=== PATIENT | female | born 1970 | race Caucasian/White ===

== ENCOUNTER 2024-01-14 11:13 | Emergency (ER) | payer OTHER, SELFPAY ==
[2024-01-14 11:22] VITALS: BP 149/85
--- NOTE | 2024-01-14 12:16 | ED.GENMED ---
History of Present Illness
General
Chief Complaint: Breathing Problem
Source: patient
Time Seen by Provider: 01/14/24 12:06
History of Present Illness
History of Present Illness:
53yoF with a history of PCOS, menorrhagia on TXA, obesity, and anxiety presenting for evaluation of shortness of breath. Patient reports feeling short of breath over the past week primarily with walking/exertion. She started with left sided chest
discomfort this morning which she describes as sharp. Pain is intermittent and worse with exhalation. She denies any cough, nausea, vomiting, syncope, fevers, leg swelling, calf pain. No recent travel. She is currently on her menses and took TXA a
few days ago.
Phy Exam
General Physical Exam
General Presentation: well appearing and no apparent distress
General age: appears stated age
General Skin: warm and dry
General Habitus: normal
General Mental: alert
General Hydration: appears well hydrated
Cardiovascular Exam
Cardiovascular Exam: regular rate/rhythm, no edema and no murmur
Pulmonary Exam
Pulmonary Exam: lungs clear, no respiratory distress, chest non tender, no crackles and no wheezing
Musculoskeletal Exam
Musculoskeletal Exam: no edema
Skin Exam
Skin Exam: normal color and warm/dry
Psychiatric Exam
Psychiatric Exam: normal mood/affect
Scores
Heart Failure Risk
Heart Failure Risk Score: Not Applicable
Course
Orders/Labs/Results
Orders:
Orders
01/14/24 11:26
Electrocardiogram (*1) Urgent
Reason for Study: Shortness of Breath
EKG- Treatment ONCE
01/14/24 11:27
CXR2 [CR Chest - 2 Views ] Urgent
Comment:
Reason For Exam: sob
01/14/24 12:16
Cardiac Monitoring- Treatment ONCE
01/14/24 12:56
CMP [Comprehensive Metabolic Panel] Urgent
Complete Blood Count/With Diff Urgent
D-Dimer Urgent
Troponin I Urgent
01/14/24 14:04
CT Chest Pe Study Urgent
Comment:
Reason For Exam: SOB, elevated D-dimer
Abnormal Lab Results
01/14/24
12:56
Hgb 10.4 L g/dL
(12.0-16.0)
Hct 33.3 L %
(37.0-47.0)
MCV 71.5 L fL
(81.0-99.0)
MCH 22.3 L pg
(27.0-31.0)
MCHC 31.2 L g/dL
(33.0-37.0)
RDW 17.4 H %
(11.5-14.5)
D-Dimer 0.53 H ug/mlFEU
(0.00-0.50)
Glucose 109 H mg/dl
(70-99)
01/14/24 12:56
01/14/24 12:56
Vital Signs
Initial and Last Documented VS:
Initial Vital Signs
Temp Pulse Resp BP Pulse Ox
98.0 F 85 16 149/85 98
01/14/24 11:22 01/14/24 11:22 01/14/24 11:22 01/14/24 11:22 01/14/24 11:22
Last Documented Vital Signs
Temp Pulse Resp BP Pulse Ox
98.0 F 56 13 131/74 100
01/14/24 11:22 01/14/24 15:02 01/14/24 15:02 01/14/24 15:02 01/14/24 15:02
MDM/Problems Addressed
Differential Diagnosis Includes:
53yoF here with exertional dyspnea x 1 week. Started with L sided chest discomfort today that is pleuritic. No known cardiac risk factors. She is afebrile and hemodynamically stable. She is well appearing in no distress. Exam is reassuring.
Differential diagnosis includes but is not limited to: chest wall pain, pneumonia, pneumothorax, PE, ACS, symptomatic anemia
Initial ED plan: Check cardiac labs, D-dimer, EKG, and CXR.
*EKG
Interpreted by ED Provider?: Yes
EKG Intrepretation Date: 01/14/24
Heart Rate: 70
Rate: normal
Rhythm: sinus
[place]: left axis deviation
Interval: normal interval
QRS Pattern: normal QRS
Ischemia: no ischemia
*Critical Care Note
Total Time (30-74mins, 75-104mins- exclusive of procedures): Not Applicable
Update Note
Update Note:
Labs reveal a mild anemia with a hemoglobin of 10.4. EKG shows NSR without ischemic changes and troponin is <0.012. D-dimer elevated and CTA chest subsequently ordered. CT is negative for pulmonary embolism and other acute findings. She is stable
for discharge. Advised close PCP f/u and ED return precautions discussed. She expressed understanding and is agreeable to plan. Patient discharged in stable condition.
ED Attending Note
-
Portions of this chart may have been created with voice recognition software.� Occasional wrong word or��sound alike� substitutions may have occurred due to the inherent limitations of voice recognition software.
Discharge Plan
Departure
Patient Disposition: Home (Routine Discharge)
Date of Disposition: 01/14/24
Time of Disposition: 15:04
Patient with high blood pressure during this ER visit?: No
Discharge Problem:
Shortness of breath
Instructions: Shortness of Breath (Dyspnea) (DC)
Prescriptions:
New
albuterol sulfate 90 mcg/actuation HFA aerosol inhaler
2 puff inhalation Q6H PRN (Reason: shortness of breath or wheezing) Qty: 8.5 0RF
Referrals:
Abiola Bernstein MD [Family Provider] -
Activity Restrictions/Additional Instructions:
Please follow-up closely with your family doctor. Return to the ER with any new or worsening symptoms.
Interventions
Interventions:
*Risk Screen - Suicide Last Done: 01/14/24 12:46
*General Assessment Last Done: 01/14/24 15:21
*Neglect/Abuse Screening Last Done: 01/14/24 12:46
ED- Fall Risk Assessment Last Done: 01/14/24 12:46
*ED COVID-19 Vaccine History Last Done: 01/14/24 12:46
*Nursing Disposition Last Done: 01/14/24 15:21
ED- Cardiac Assessment Last Done: 01/14/24 12:46
ED- Pulmonary Assessment Last Done: 01/14/24 12:46
Discharge Date and Time
Discharge Date/Time: 01/14/24 15:22
Print Language: GERMAN
[2024-01-14 12:39] VITALS: BP 128/65
[2024-01-14 13:00] VITALS: BP 140/68
[2024-01-14 13:43] LABS: % Basophils 0.8 % (0-2); % Immature Granulocytes 0.3 % (0-0.5); % Lymphocytes 27.6 % (20.5-51.1); % Monocytes 8.8 % (1.7-9.3); % Neutrophils 59.5 % (42.2-75.2); Absolute Basophils 0.1 10^3/uL (0-0.2); Absolute Eosinophils 0.2 10^3/uL (0-0.7); Absolute Lymphocytes 1.7 10^3/uL (1.2-3.4); Absolute Monocytes 0.6 10^3/uL (0.1-0.6); Absolute Neutrophils 3.7 10^3/uL (1.4-6.5); Hematocrit 33.3 % (37.0-47.0); Hemoglobin 10.4 g/dL (12.0-16.0); Mean Corp Hgb Conc. 31.2 g/dL (33.0-37.0); Mean Corpuscular Hgb 22.3 pg (27.0-31.0); Mean Corpuscular Volume 71.5 fL (81.0-99.0); Mean Platelet Volume 10.4 fL (7.4-10.4); Nucleated Red Blood Cells % 0 %; Platelet Count 257 10^3/uL (130-400); Red Blood Cell Count 4.66 10^6/uL (4.20-5.40); Red Cell Dist. Width 17.4 % (11.5-14.5); White Blood Cell Count 6.2 10^3/uL (4.8-10.8)
[2024-01-14 13:54] LABS: ALT (SGPT) 13 U/L (0-35); AST (SGOT) 24 U/L (14-36); Albumin 4.7 g/dl (3.5-5.0); Alkaline Phosphatase 60 U/L (38-126); Blood Urea Nitrogen 17 mg/dl (7-17); Calcium 9.9 mg/dl (8.4-10.2); Carbon Dioxide 24 mmol/L (22-30); Chloride 106 mmol/L (98-107); Glucose 109 mg/dl (70-99); Potassium 4.2 mmol/L (3.5-5.1); Sodium 139 mmol/L (135-145); Total Bilirubin 0.7 mg/dl (0.2-1.3); Total Protein 7.5 g/dl (6.3-8.2); eGFR > 60.00
[2024-01-14 13:57] LABS: D-Dimer 0.53 ug/mlFEU (0.00-0.50)
[2024-01-14 14:00] VITALS: BP 139/72
[2024-01-14 14:02] LABS: Troponin I < 0.012 ng/ml
[2024-01-14 15:00] VITALS: BP 71/52
[2024-01-14 15:02] VITALS: BP 131/74
== END 2024-01-14 15:22 | disposition home or self-care (01) ==
LOC: EMR 11:13
PROVIDERS: Physician Assistant; EMERGENCY PHYSICIAN Emergency Medicine; FAMILY PHYSICIAN Family Medicine
DX: R06.02 Shortness of breath (principal); E28.2 Polycystic ovarian syndrome
CPT/HCPCS: 99285; 71046; 71275; 80053; 84484; 85025; 85379; 93005; Q9967